=== PATIENT | female | born 1950 | race Caucasian/White ===

== ENCOUNTER → 2019-09-03 | Outpatient (CLI) | payer MEDICARE, OTHER | END | disposition home or self-care (01) | LOC: PLD 15:19 → LAB SHORT 15:19 | DX: D48.5 Neoplasm of uncertain behavior of skin (principal) | CPT/HCPCS: 88305 ==

== ENCOUNTER 2020-01-23 11:52 | Inpatient (IN) | payer MEDICARE, OTHER ==
[~2020-01-23] VITALS: Ht 175.3 cm; Wt 91.9 kg
[~2020-01-23 11:52] MED LIST: ALENDRONATE SOD70 MG PO; HYDR1TAB94 PO; IBU800 MG PO
--- NOTE | 2020-01-24 12:30 | NUR ---
Ambulatory in Day Surgery History, Chart, Medications and Allergies reviewed before start of procedure.Lungs clear T/O to Auscultation. Patient confirms NPO status and agrees with scheduled surgery. Patient reports completing Chlorhexadine shower X2 prior to admission to hospital. ALL MEDS GIVEN PER ORDER WITH A SIP OF WATER. HAS SUN GLASSES AND CELL PHONE.
[2020-01-24] MEDS ORDERED: ATOR20 PO (17:35)
--- NOTE | 2020-01-24 19:49 | NUR ---
SHIFT SUMMARY PT A&OX4, VSS, S/P L REV TSA, IMMOBILIZER ON, POLAR MIGUE ON. REP PAIN TOLERABLE. DENIES N&V, SVETLANA PO. VOIDED USING BEDPAIN. REPORT GIVEN TO GUILHERME HAJI.
[2020-01-25 05:00] LABS: BASOPHILS ABSOLUTE AUTO 0.02 K/mm3 (0.00-0.23); BASOPHILS PERCENT AUTO 0 % (0-2); EOSINOPHILS PERCENT AUTO 0 % (0-6); Hematocrit 36.1 % (33.0-51.0); Hemoglobin 11.4 g/dL (11.5-16.0); IMMATURE GRAN ABSOLUTE AUTO 0.07 K/mm3 (0.00-0.10); IMMATURE GRAN PERCENT AUTO 1 % (0-1); LYMPHOCYTES ABSOLUTE AUTO 1.17 K/mm3 (0.84-5.20); LYMPHOCYTES PERCENT AUTO 10 % (21-46); MONOCYTES ABSOLUTE AUTO 1.18 K/mm3 (0.16-1.47); MONOCYTES PERCENT AUTO 10 % (4-13); Mean Corpuscular HGB 30.5 pg (26.0-34.0); Mean Corpuscular HGB Conc 31.6 g/dL (31.5-36.5); Mean Platelet Volume 9.6 fL (9.1-12.4); NEUTROPHILS ABSOLUTE AUTO 9.54 K/mm3 (1.96-9.15); NEUTROPHILS PERCENT AUTO 80 % (41-73); Platelet Count 386 K/mm3 (150-400); RDW Coefficient Variation 12.4 % (11.7-14.2); Red Blood Cell Count 3.74 M/mm3 (3.80-5.20); White Blood Cell Count 11.98 K/mm3 (4.00-11.30)
[2020-01-25 05:03] LABS: Mean Corpuscular Volume 97 fL (80-100)
--- NOTE | 2020-01-25 05:09 | NUR ---
Patient had an uneventful night. her pain was managed with her scheduled pain medications. Lt shoulder with pressure dressing, polar pack T/O the night. Up to the bathroom three times. no acute changes.
[2020-01-25 05:19] LABS: Magnesium, Blood 2.1 mg/dL (1.6-2.4)
[2020-01-25 05:20] LABS: Anion Gap 4 mmol/L (6-16); Blood Urea Nitrogen 17 mg/dL (8-24); Bun/Creatinine Ratio 25.9 (12.0-20.0); CO2, Blood 31 mmol/L (21-32); Calcium, Blood 8.7 mg/dL (8.5-10.1); Chloride, Blood 106 mmol/L (98-108); Creatinine, Blood 0.66 mg/dL (0.40-1.00); Glomerular Filtration Rate >60 (60-); Glucose, Blood 110 mg/dL (70-99); Sodium, Blood 141 mmol/L (136-145)
[2020-01-25] MEDS ORDERED: Percocet 5-3251 EACH PO (10:17)
[2020-01-25] MEDS ORDERED: PROM25 PO (10:18)
--- NOTE | 2020-01-25 15:00 | NUR ---
PATIENT DISCHARGED TO HOME BY CN AT THIS TIME. TOLERATING PO. PAIN CONTROLLED. CIRC CHECKS WNL. NO C/O AT THIS TIME.
== END 2020-01-25 15:03 | disposition home or self-care (01) | DRG 483 ==
LOC: PRE IP 01-24 07:30 → SURS 01-24 10:54
PROVIDERS: ADMIT Orthopaedic Surgery
PROC: 0RRK00Z Replacement of Left Shoulder Joint with Reverse Ball and Socket Synthetic Substitute, Open Approach (ICD-10-PCS; principal; 2020-01-24 12:30)
DX: S42.202A Unspecified fracture of upper end of left humerus, initial encounter for closed fracture (principal); M81.0 Age-related osteoporosis without current pathological fracture
CPT/HCPCS: 36415; 73030; 80048; 83735; 85025; 97110; 97162; 97166; 97530; 97535; J0171; J0690; J0735; J1100; J1885; J2250; J2405; J2704; J2795; J3010; J7120

== ENCOUNTER 2021-07-06 09:00 | Emergency (ER) | payer MEDICARE, OTHER ==
[~2021-07-06] VITALS: Ht 175.3 cm; Wt 90.7 kg
[~2021-07-06 09:00] MED LIST changes: +ATOR20 PO; +PROM25 PO; +Percocet 5-3251 EACH PO
[2021-07-06 11:03] LABS: Alanine Aminotransfer (ALT/SGP 22 U/L (12-78); Albumin, Blood 3.6 g/dL (3.4-5.0); Albumin/Globulin Ratio 1.2 (0.8-1.8); Alk Phos 33 U/L (50-136); Anion Gap 6 mmol/L (6-16); Aspartate Aminotrans (AST/SGOT 19 U/L (12-37); Bilirubin, Total 0.5 mg/dL (0.1-1.0); Blood Urea Nitrogen 21 mg/dL (8-24); Bun/Creatinine Ratio 27.9 (12.0-20.0); CO2, Blood 25 mmol/L (21-32); Calcium, Blood 9.1 mg/dL (8.5-10.1); Chloride, Blood 109 mmol/L (98-108); Creatinine, Blood 0.75 mg/dL (0.40-1.00); Glomerular Filtration Rate >60 (60-); Glucose, Blood 109 mg/dL (70-99); Potassium, Blood 4.5 mmol/L (3.5-5.5); Sodium, Blood 140 mmol/L (136-145); Total Protein, Blood 6.6 g/dL (6.4-8.2)
== END 2021-07-06 13:03 | disposition home or self-care (01) ==
LOC: ER 09:00
PROVIDERS: Student in an Organized Health Care Education/Training Program
DX: H53.2 Diplopia (principal); Z87.891 Personal history of nicotine dependence
CPT/HCPCS: 36415; 70470; 80053; 85651; 99284-25; Q9967

== ENCOUNTER → 2021-09-30 | Outpatient (CLI) | payer MEDICARE, OTHER | END | disposition home or self-care (01) | LOC: LAB 12:31 → LAB SHORT 12:31 | DX: D04.62 Carcinoma in situ of skin of left upper limb, including shoulder (principal) | CPT/HCPCS: 88305 ==